=== PATIENT | female | born 1995 | race Caucasian/White ===

== ENCOUNTER 2016-12-20 10:06 | Emergency (ER) | payer OTHER ==
--- NOTE | 2016-12-20 10:48 | EDPHY ---
H & P Time Seen by Provider: 12/20/16 10:25 HPI/ROS: CHIEF COMPLAINT: left wrist and hand pain post foosh HISTORY OF PRESENT ILLNESS: 21-year-old female arrives via private vehicle stating that 3 days ago while at a concert she fell on her outstretched left hand she is complaining of left wrist pain and left 5th digit pain. Pain is reproducible with palpation range of motion. She has paresthesia to her left 4th and 5th digit. No wrist drop PHYSICAL EXAM (Prior to examination, patient consented to physical exam, hands were washed and my usual and customary physical exam procedures followed) 1) GENERAL: Well-developed, well-nourished, alert and oriented. Appears to be in no acute distress. 2) HEAD: Normocephalic 3) HEENT: Pupils equal, round, reactive to light bilaterally. 4) LUNGS: Breathing comfortably. 5) MUSCULOSKELETAL: Left 5th digit abrasion to the distal phalanx with no signs of infection, negative kanavel sign. Tender to palpation middle and proximal phalanx of the 5th digit. Otherwise remainder of the hand is nontender. She is tender to palpation distal ulna and radius with no deformity no angulation. Soft compartments. Normal coloration. 6) SKIN: abrasion to the left 5th digit distal phalanx . 7) VASCULAR: pulses and cap refill present are brisk 8) NEUROLOGIC: Radial, ulnar, median nerve function intact with no deficits appreciated on exam DIFFERENTIAL DIAGNOSIS: in no particular order including but not limited to fracture, sprain, compartment syndrome Procedure: Splint A john-tape splint, Velcro volar splint was applied by ER environmental monitoring technician. After application of the splint I returned and re-examined the patient. The splint was adequately immobilizing the joint and distal to the splint the patient's circulation and sensation were intact. Patient shows no signs of compartment syndrome. Was given orthopedic precautions. Smoking Status: Never smoked Constitutional: Initial Vital Signs Temperature (C) 37 C 12/20/16 10:07 Heart Rate 99 12/20/16 10:07 Respiratory Rate 18 12/20/16 10:07 Blood Pressure 119/100 H 12/20/16 10:07 O2 Sat (%) 98 12/20/16 10:07 O2 Delivery Mode Room Air Allergies/Adverse Reactions: No Known Allergies Allergy (Unverified 12/20/16 10:10) Home Medications: Medication Instructions Recorded Cephalexin [Keflex] 500 mg PO QID 7 Days 12/20/16 MDM/Departure - MDM Imaging Results: Imaging Impressions Wrist X-Ray 12/20/16 10:10 Impression: Negative for fracture. Hand X-Ray 12/20/16 10:53 Impression: Nondisplaced fracture of the terminal tuft fifth finger left hand. Images reviewed myself Medications Given: Discontinued Medications Cephalexin HCl (Keflex) 500 mg PO EDNOW ONE PRN Reason: Protocol Stop: 12/20/16 11:53 Last Admin: 12/20/16 12:01 Dose: 500 mg - Depart Disposition: Home, Routine, Self-Care Clinical Impression: Open finger fracture Qualifiers: Encounter type: initial encounter Finger: little finger Phalanx: distal Fracture alignment: nondisplaced Laterality: left Qualified Code(s): S62.667B - Nondisplaced fracture of distal phalanx of left little finger, initial encounter for open fracture Left wrist sprain Qualifiers: Encounter type: initial encounter Qualified Code(s): S63.502A - Unspecified sprain of left wrist, initial encounter Condition: Good Instructions: Finger Fracture (ED), Wrist Sprain (ED) Prescriptions: Cephalexin [Keflex] 500 mg PO QID 7 Days Referrals: Aditya Ramsey MD [Medical Doctor] - 5-7 days, call for appt. (Dr. Ramsey is an orthopedic surgeon) Rupinder Carbone MD [Medical Doctor] - 2-3 days, call for appt. (Dr. Carbone is a hand surgeon)
[2016-12-20] MEDS ORDERED: CEPHALEXIN 500 MG CAP PO ONE (11:52)
[2016-12-20 12:26] VITALS: BP 135/90; PULSE 70; RESP 16; TEMP 98.1; O2SAT 96
== END 2016-12-20 12:15 | disposition home or self-care (01) ==
DX: S62.667B Nondisplaced fracture of distal phalanx of left little finger, initial encounter for open fracture (principal); S63.502A Unspecified sprain of left wrist, initial encounter; W18.39XA Other fall on same level, initial encounter; Y92.89 Other specified places as the place of occurrence of the external cause
CPT/HCPCS: L3908